=== PATIENT | male | born 1975 | race Native Hawaiian/Other Pacific Islander ===

== ENCOUNTER 2017-01-18 14:41 | Outpatient (CLI) | payer BC ==
--- NOTE | 2017-01-18 15:03 | XRay Report ---
Left knee 3 views: History: Knee pain. Findings: No bony or articular abnormality. No fracture dislocation or joint effusion. Impression: Essentially negative left knee.
== END 2017-01-18 14:42 | disposition home or self-care (01) ==
LOC: SPVIMAG 14:41
PROVIDERS: ATTEND Orthopaedic Surgery
DX: M25.562 Pain in left knee (principal)